=== PATIENT | male | born 2000 | race African-American/Black ===

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

== ENCOUNTER 2022-08-05 23:15 | Emergency (ER) | payer OTHER, SELFPAY | END 2022-08-05 23:38 | disposition home or self-care (01) | LOC: MADERS 23:15 | DX: H91.93 Unspecified hearing loss, bilateral (principal) | CPT/HCPCS: 99283 ==